=== PATIENT | female | born 2000 | race Hispanic/Latino ===

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

== ENCOUNTER 2021-09-20 12:18 | Emergency (ER) | payer SELFPAY ==
[~2021-09-20] VITALS: Ht 152.4 cm; Wt 56.7 kg
[2021-09-20] MEDS ORDERED: EYE IRRIGATION (OPTH) 120 ML BTL OP ONE (12:30)
[2021-09-20] MEDS ORDERED: FLUORESCEIN SOD(OPTH) 1 MG STRP OP ONE (12:30)
[2021-09-20] MEDS ORDERED: TETRACAINE HCL 0.5% OPTH SOLN 4 ML BTL OP ONE (12:30)
[2021-09-20] MEDS ORDERED: TOBRAMYCIN 0.3% OPTH OINT 3.5 GM TUBE OP ONE (13:00)
[2021-09-20] MEDS ORDERED: HYDROCODONE/APAP 5MG-325MG TAB PO ONE (13:00)
[2021-09-20] MEDS ORDERED: CYCLOPENTOLATE HCL 1% OPTH SOLN 2ML BTL OP ONE ×2 (13:00→14:00)
[2021-09-20 13:26] VITALS: BP 126/64
== END 2021-09-20 14:00 | disposition home or self-care (01) ==
LOC: ER 12:24
DX: H57.11 Ocular pain, right eye (principal); S05.01XA Injury of conjunctiva and corneal abrasion without foreign body, right eye, initial encounter; W50.0XXA Accidental hit or strike by another person, initial encounter; Y92.008 Other place in unspecified non-institutional (private) residence as the place of occurrence of the external cause
CPT/HCPCS: 99283